=== PATIENT | male | born 1970 | race Two or more races ===

== ENCOUNTER 2018-10-12 11:34 | Emergency (ER) | payer BC, OTHER ==
[2018-10-12 11:51] VITALS: BP 133/81; PULSE 79; TEMP 98.9; BMI 27.3
--- NOTE | 2018-10-12 12:32 | PDOC ---
History of Present Illness - General Chief Complaint: Sore Throat Stated Complaint: sore throat Time Seen by Provider: 10/12/18 11:55 History Source: Patient (sorethroat X 2 days) Exam Limitations: No Limitations - History of Present Illness Associated Symptoms: reports: cough. denies: fever/chills (sorethroat X 2 days) , headaches, nausea/vomiting, shortness of breath, syncope Past History - Travel Traveled outside of the country in the last 30 days: No Close contact w/someone who was outside of country & ill: No - Past Medical History Allergies/Adverse Reactions: Allergies Allergy/AdvReac Type Severity Reaction Status Date / Time No Known Allergies Allergy Verified 10/12/18 11:51 Home Medications: Ambulatory Orders Benzonatate [Tessalon Pearls -] 100 mg PO TID #21 capsule 10/12/18 - Suicide/Smoking/Psychosocial Hx Smoking History: Never smoked Have you smoked in the past 12 months: No Information on smoking cessation initiated: No Hx Alcohol Use: No Drug/Substance Use Hx: No Review of Systems - Review of Systems Constitutional: No: Chills, Fever HEENTM: Yes: Throat Pain. No: Ear Pain, Nose Congestion, Throat Swelling, Difficulty Swallowing Respiratory: Yes: Cough. No: Orthopnea, Shortness of Breath, SOB with Exertion , Wheezing, Productive cough Cardiac (ROS): No: Chest Pain, Lightheadedness, Palpitations Neurological: No: Headache, Numbness, Seizure, Tingling, Tremors, Dizziness *Physical Exam - Vital Signs Last Vital Signs Temp Pulse Resp BP Pulse Ox 98.9 F 79 18 133/81 100 10/12/18 11:48 10/12/18 11:48 10/12/18 11:48 10/12/18 11:48 10/12/18 11:48 - Physical Exam General Appearance: Yes: Nourished HEENT: positive: EOMI, DAVE, TMs Normal, Pharynx Normal, Pharyngeal Erythema. negative: Tonsillar Exudate, Excessive drooling Respiratory/Chest: positive: Lungs Clear, Normal Breath Sounds Cardiovascular: positive: Regular Rhythm, Regular Rate, S1, S2 Gastrointestinal/Abdominal: positive: Soft Integumentary: positive: Normal Color Neurologic: positive: forming operator II-XII NML intact, Fully Oriented, Alert, Normal Mood/ Affect, Normal Response, Motor Strength 5/5 Medical Decision Making - Medical Decision Making 10/12/18 12:33 48y/o M with sorethroat and cough X 2 days + dry cough but no fever, chills, drooling RS negative Rx for antitussive sent to pharmacy supportive measures advised 10/12/18 13:26 *DC/Admit/Observation/Transfer Diagnosis at time of Disposition: Sore throat, Cough - Discharge Dispostion Disposition: HOME Condition at time of disposition: Stable - Prescriptions Prescriptions: Benzonatate [Tessalon Pearls -] 100 mg PO TID #21 capsule - Referrals - Patient Instructions Additional Instructions: Your Throat test was negative for strep infection today A culture will be sent out and if it come back positive in 2-3 days you will be contacted please take motrin or tylenol for pain A cough medication has been sent to your pharmacy Return to the ER If worsening symptoms occurs - Post Discharge Activity
== END 2018-10-12 13:04 | disposition home or self-care (01) ==
LOC: JERFT 11:34
DX: J02.9 Acute pharyngitis, unspecified (principal)
CPT/HCPCS: 87070; 87880; 99281-25